=== PATIENT | male | born 1970 | race Caucasian/White ===

== ENCOUNTER 2019-01-09 19:19 | Emergency (ER) | payer SELFPAY ==
[2019-01-09] MEDS ORDERED: Ibuprofen 800 MG TAB ONE (20:08)
== END 2019-01-09 20:05 | disposition home or self-care (01) ==
LOC: ERS 19:19
DX: K03.81 Cracked tooth (principal); K02.9 Dental caries, unspecified; F32.9 Major depressive disorder, single episode, unspecified; F41.9 Anxiety disorder, unspecified
CPT/HCPCS: 99282